=== PATIENT | male | born 1980 | race Caucasian/White ===

== ENCOUNTER 2017-12-25 20:28 | Emergency (ER) | payer BC ==
[2017-12-25] MEDS: METHOCARBAMOL 1,000 MG/10 ML VIAL (J2800) IV (21:16)
[2017-12-25] MEDS: ONDANSETRON 4MG/2ML VIAL (J2405) IV (21:16)
[2017-12-25] MEDS: KETOROLAC 30 MG/ML VIAL (J1885) IV (21:17)
[2017-12-25] MEDS: MORPHINE 4 MG/ML 1ML VIAL/SYRINGE (J2270) IV ×2 (21:55→22:38)
[2017-12-25] MEDS: OXYCODONE/APAP 5MG/325MG(BULK FOR ED) 1 TABLET PO (23:52)
== END 2017-12-26 00:06 | disposition home or self-care (01) ==
LOC: M ED 12-26 00:06
DX: M54.5 Low back pain (principal); Z79.899 Other long term (current) drug therapy; Z88.0 Allergy status to penicillin; F17.210 Nicotine dependence, cigarettes, uncomplicated
CPT/HCPCS: J2270

== ENCOUNTER → 2018-03-19 | Outpatient (CLI) | payer BC | LOC: M RAD 17:02 | DX: M54.2 Cervicalgia (principal); M54.5 Low back pain | CPT/HCPCS: 72052 ==

== ENCOUNTER → 2018-12-31 | Outpatient (CLI) | payer BC ==
[~2018-12-31] MED LIST: FLOM0.4C39 PO; NAPR-837 PO; OMEP40CA2 PO; PENT1TAB8 PO; PERC5TAB12 PO; SOMA350T PO; SUCR1TAB56 PO
--- NOTE | 2019-01-01 03:28 | REP ---
Clinical: Hypothyroidism . Comparison: 07/20/2006 . Findings: The mediastinum and cardiac silhouette are stable and within normal limits for portable technique. The lung sam are clear without acute consolidation, effusion, or pneumothorax. Skeletal structures are intact. Impression: No acute cardiopulmonary process appreciated. Electronically Signed by Dougie Humphrey MD 01/01/2019 03:20 A
--- NOTE | 2019-01-01 04:37 | REP ---
Clinical: Hypothyroidism. Technique: Real time baez scale ultrasound examination using linear high frequency transducer. Findings: The thyroid gland is heterogeneous, but normal in contour and size without focal cystic or nodular lesions identified. Right lobe measures 4.5 x 1.9 x 1.6 cm. Isthmus measures 4.0 mm in width. Left lobe measures 4.5 x 1.7 x 1.9 cm. Impression: Relatively normal thyroid ultrasound. No focal lesions or abnormalities identified. Electronically Signed by Dougie Humphrey MD 01/01/2019 04:29 A
== END ==
LOC: M RAD 08:31
PROVIDERS: ATTEND Nurse Practitioner Adult Health
DX: E03.9 Hypothyroidism, unspecified (principal); R05 Cough

== ENCOUNTER → 2020-11-10 | Outpatient (CLI) | payer BC ==
[~2020-11-10] MED LIST changes: -OMEP40CA2 PO; +OMEP40CA97 PO
--- NOTE | 2020-11-10 09:10 | REP ---
INDICATION: HYPOTHYROIDISM, UNSPECIFIED. COMPARISON: 12/31/2018. TECHNIQUE: Real-time sonographic evaluation of thyroid performed. FINDINGS: Both lobes of the thyroid are diffusely heterogeneous in echotexture. No discrete nodule is seen bilaterally. The right lobe measures 5.0 x 2.1 x 1.9 cm and the left lobe 4.8 x 1.9 x 1.7 cm. IMPRESSION: Diffuse heterogeneous echotexture of both lobes of the thyroid without a discrete nodule identified. No significant change compared to the prior study. <Electronically signed by Nazario Almazan > 11/10/20 [id number]
== END ==
LOC: M RAD 08:40
PROVIDERS: ATTEND Nurse Practitioner Family
DX: E03.9 Hypothyroidism, unspecified (principal)

== ENCOUNTER → 2021-04-21 | Outpatient (CLI) | payer BC ==
[~2021-04-21] MED LIST changes: +OMEP40CA4 PO; -OMEP40CA97 PO
== END ==
LOC: M WUC 10:08
PROVIDERS: ATTEND Nurse Practitioner Family
DX: E03.9 Hypothyroidism, unspecified (principal)

== ENCOUNTER → 2021-06-19 | Outpatient (CLI) | payer BC | LOC: M WUC 12:15 | PROVIDERS: ATTEND Nurse Practitioner Family | DX: E03.9 Hypothyroidism, unspecified (principal) ==

== ENCOUNTER → 2021-06-23 | Outpatient (CLI) | payer BC | LOC: M WUC 10:05 | PROVIDERS: ATTEND Nurse Practitioner Family | DX: E03.9 Hypothyroidism, unspecified (principal); K90.9 Intestinal malabsorption, unspecified ==

== ENCOUNTER → 2021-09-18 | Outpatient (CLI) | payer BC | LOC: M WUC 08:09 | PROVIDERS: ATTEND Nurse Practitioner Family | DX: E03.9 Hypothyroidism, unspecified (principal) ==

== ENCOUNTER → 2022-01-22 | Outpatient (REF) | payer BC ==
[2022-01-22 12:23] LABS: FREE T3 2.4 PG/ML (2.2-4.0); FREE T4 0.86 NG/DL (0.76-1.46); THYROID PEROXIDASE ANTIBODY > 1300.0 U/ML (<60.0)
== END ==
LOC: M LABWUC 09:44
PROVIDERS: ATTEND Internal Medicine
DX: E03.9 Hypothyroidism, unspecified (principal)

== ENCOUNTER → 2022-07-25 | Outpatient (REF) | payer BC ==
[2022-07-25 17:55] LABS: FREE T4 1.04 NG/DL (0.89-1.76)
[2022-07-25 18:01] LABS: THYROID STIMULATING HORMONE 59.625 uIU/ML (0.55-4.78)
== END ==
LOC: M LABDRWAD 16:48 → M LABWUC 16:48
PROVIDERS: ATTEND Internal Medicine
DX: E03.9 Hypothyroidism, unspecified (principal)

== ENCOUNTER → 2022-12-10 | Outpatient (CLI) | payer BC ==
[2022-12-10 12:23] LABS: FREE T4 1.36 NG/DL (0.89-1.76)
[2022-12-10 12:24] LABS: THYROID STIMULATING HORMONE 0.478 uIU/ML (0.55-4.78)
== END ==
LOC: M WUC 08:13
PROVIDERS: ATTEND Internal Medicine
DX: E03.9 Hypothyroidism, unspecified (principal)

== ENCOUNTER → 2023-08-20 | Outpatient (CLI) | payer BC ==
[2023-08-20 12:04] LABS: HEMOGLOBIN A1c 5.5 % (4.0-6.0)
== END ==
LOC: M WUC 08:28
PROVIDERS: ATTEND Surgery
DX: F18.10 Inhalant abuse, uncomplicated (principal); F17.210 Nicotine dependence, cigarettes, uncomplicated
CPT/HCPCS: 83036; G0480

== ENCOUNTER → 2023-08-20 | Outpatient (CLI) | payer BC ==
[2023-08-20 11:25] LABS: BASO % 0.4 % (0.0-1.0); EOS # 0.3 10^3/uL (0.0-0.5); EOS % 2.8 % (0.0-3.0); HEMATOCRIT 50.9 % (42.0-52.0); HEMOGLOBIN 16.9 g/dl (13.5-17.5); LYMPH # 3.3 10^3/uL (1.5-5.0); LYMPH % 32.4 % (24.0-44.0); MEAN CORPUSCULAR HEMOGLOBIN 31.1 pg (27.0-33.0); MEAN CORPUSCULAR HGB CONC 33.2 g/dl (32.0-36.5); MEAN CORPUSCULAR VOLUME 93.6 fl (80.0-96.0); MONO # 0.6 10^3/uL (0.0-0.8); MONO % 6.2 % (2.0-8.0); NEUTROPHILS # 5.8 10^3/uL (1.5-8.5); NEUTROPHILS % 57.6 % (36.0-66.0); PLATELET COUNT, AUTOMATED 297 10^3/uL (150-450); RED BLOOD COUNT 5.44 10^6/uL (4.30-6.10); WHITE BLOOD COUNT 10.1 10^3/uL (4.0-10.0)
[2023-08-20 11:42] LABS: ERYTHROCYTE SEDIMENTATION RATE 51 mm/hr (0-15)
[2023-08-20 11:57] LABS: ALBUMIN 3.1 G/DL (3.2-5.2); ALKALINE PHOSPHATASE 66 U/L (46-116); ALT/SGPT 32 U/L (7.0-40); AST/SGOT 15 U/L (<34); BILIRUBIN,TOTAL 0.3 MG/DL (0.3-1.2); BLOOD UREA NITROGEN 18 MG/DL (9-23); CALCIUM LEVEL 8.6 MG/DL (8.5-10.1); CARBON DIOXIDE LEVEL 28 MMOL/L (20-31); CHLORIDE LEVEL 107 MMOL/L (98-107); CREATININE FOR GFR 0.82 MG/DL (0.70-1.30); GLOMERULAR FILTRATION RATE > 60.0 (>60); GLUCOSE, FASTING 68 MG/DL (60-100); POTASSIUM SERUM 4.5 MMOL/L (3.5-5.1); SODIUM LEVEL 138 MMOL/L (136-145); TOTAL PROTEIN 6.6 G/DL (5.7-8.2)
[2023-08-20 11:58] LABS: RHEUMATOID FACTOR QUANT < 3.5 IU/ML (<14)
[2023-08-20 11:59] LABS: FOLATE 8.94 NG/ML (>5.4); TOTAL 25(OH) VITAMIN D 19.1 NG/ML (20.0-100.0); VITAMIN B12 LEVEL 283 PG/ML (211-911)
[2023-08-21 12:07] LABS: ANTINUCLEAR ANTIBODIES DIRECT Negative (Negative)
== END ==
LOC: M WUC 08:24
PROVIDERS: ATTEND Psychiatry & Neurology Neurology
DX: R51.9 Headache, unspecified (principal)

== ENCOUNTER → 2023-08-20 | Outpatient (CLI) | payer BC ==
[2023-08-20 11:58] LABS: FREE T4 1.18 NG/DL (0.89-1.76); THYROID STIMULATING HORMONE 0.348 uIU/ML (0.55-4.78)
[2023-08-20 12:00] LABS: FREE T3 3.8 PG/ML (2.3-4.2)
== END ==
LOC: M WUC 08:26
PROVIDERS: ATTEND Internal Medicine
DX: E03.9 Hypothyroidism, unspecified (principal)

== ENCOUNTER → 2023-09-26 | Outpatient (REF) | payer BC ==
[2023-09-26 17:10] LABS: THYROID STIMULATING HORMONE 3.09 uIU/ML (0.55-4.78)
[2023-09-26 17:11] LABS: FREE T4 1.6 NG/DL (0.89-1.76)
== END ==
LOC: M LABWUC 16:20
PROVIDERS: ATTEND Registered Nurse
DX: E03.9 Hypothyroidism, unspecified (principal)

== ENCOUNTER 2024-04-06 13:21 | Day surgery (SDC) | payer BC ==
[~2024-04-06] VITALS: Ht 188 cm; Wt 146.8 kg
[~2024-04-06 13:21] MED LIST changes: +FENO160T10 PO; +IBUP80TA PO; +LIOT5TAB6 PO; +NEXI40CA PO; +ROSU40TA63 PO; +SUMA100T2 PO; +SYNT300T2 PO; +TOPI100T9 PO
[2024-04-06] MEDS ORDERED: LR 1,000 ML IV SCH ×2 (13:35→17:05)
[2024-04-06] MEDS ORDERED: fentaNYL 100 MCG/2 ML INJECTION As Ordered ONE (14:15)
[2024-04-06] MEDS ORDERED: MIDAZOLAM INJ 2MG/2ML VIAL As Ordered ONE (14:15)
[2024-04-06] MEDS ORDERED: ROCURONIUM BROMIDE 50MG/5ML VIAL As Ordered ONE (14:15)
[2024-04-06] MEDS ORDERED: ONDANSETRON 4MG 2ML VIAL As Ordered ONE (14:15)
[2024-04-06] MEDS ORDERED: LIDOCAINE 2% 100MG/5ML SDV (FOR ANES.) As Ordered ONE (14:15)
[2024-04-06] MEDS ORDERED: SUGAMMADEX SODIUM 500 MG/5 ML VIAL (BRIDION) As Ordered ONE (14:15)
[2024-04-06] MEDS ORDERED: propofoL 200 MG/20 ML VIAL As Ordered ONE (14:15)
[2024-04-06] MEDS ORDERED: KETOROLAC 60MG 2ML VIAL As Ordered ONE (14:18)
[2024-04-06] MEDS ORDERED: ceFAZolin SOD 3 GM in IV 1 EA IV ONE (14:35)
[2024-04-06] MEDS: INDOCYANINE GREEN 25MG VIAL (IC-GREEN) IV ONE (14:45)
[2024-04-06] MEDS: ceFAZolin SOD 1 GM in D5W MINI-BAG PLUS 50 ML IV ONE (14:45)
[2024-04-06] MEDS: ceFAZolin SOD 2 GM in IV 1 EA IV ONE (14:47)
[2024-04-06] MEDS: HEPARIN SOD (PORCINE) 5000UNITS/ML 1ML VIAL/SYRINGE SQ ONE (16:13)
[2024-04-06] MEDS ORDERED: LABETALOL 100MG/20ML VIAL As Ordered ONE (16:26)
[2024-04-06] MEDS ORDERED: dexmedeTOMIDine (4MCG/ML)200MCG/50ML BTL (PRECEDEX) As Ordered ONE (16:54)
[2024-04-06] MEDS ORDERED: HYDR-3713 PO (17:17)
[2024-04-06] MEDS: fentaNYL 100 MCG/2 ML INJECTION IV PRN (17:42)
[2024-04-06] MEDS: ONDANSETRON 4MG 2ML VIAL IV PRN (17:44)
[2024-04-06] MEDS: HYDROMORPHONE HCL 0.5 MG/ 0.5 ML SYRINGE IV PRN (17:47)
[2024-04-06] MEDS: oxyCODONE 5MG TAB PO PRN (17:48)
[2024-04-06 19:17] VITALS: BP 119/72; TEMP 97.3; O2SAT 96
== END 2024-04-06 19:18 | disposition home or self-care (01) ==
LOC: M SDC 13:21
PROVIDERS: ATTEND Surgery
DX: K80.10 Calculus of gallbladder with chronic cholecystitis without obstruction (principal); I10 Essential (primary) hypertension; E03.9 Hypothyroidism, unspecified; E78.00 Pure hypercholesterolemia, unspecified; K21.9 Gastro-esophageal reflux disease without esophagitis; F17.210 Nicotine dependence, cigarettes, uncomplicated; Z79.899 Other long term (current) drug therapy; Z79.890 Hormone replacement therapy; Z88.0 Allergy status to penicillin
CPT/HCPCS: 47562; 88304; J0665; J0690; J1100; J1170; J1885; J1920; J2250; J2405; J3010; Q9968; S2900

== ENCOUNTER → 2024-04-25 | Outpatient (CLI) | payer BC ==
[~2024-04-25] MED LIST changes: +HYDR-3713 PO; -ROSU40TA63 PO; +ROSU40TA81 PO
== END ==
LOC: M SLEEP 20:00
PROVIDERS: ATTEND Physician Assistant
DX: R40.0 Somnolence (principal)

== ENCOUNTER → 2024-06-05 | Outpatient (CLI) | payer BC | LOC: M SLEEP 20:00 | PROVIDERS: ATTEND Physician Assistant | DX: G47.33 Obstructive sleep apnea (adult) (pediatric) (principal) ==

== ENCOUNTER → 2024-10-30 | Outpatient (CLI) | payer BC ==
[2024-10-30 16:15] LABS: HEMATOCRIT 48.9 % (42.0-52.0); HEMOGLOBIN 16.1 g/dl (13.5-17.5); MEAN CORPUSCULAR HEMOGLOBIN 30.4 pg (27.0-33.0); MEAN CORPUSCULAR HGB CONC 32.9 g/dl (32.0-36.5); MEAN CORPUSCULAR VOLUME 92.4 fl (80.0-96.0); PLATELET COUNT, AUTOMATED 254 10^3/uL (150-450); RED BLOOD COUNT 5.29 10^6/uL (4.30-6.10); WHITE BLOOD COUNT 7.8 10^3/uL (4.0-10.0)
[2024-10-30 16:45] LABS: ALBUMIN 3.2 G/DL (3.2-5.2); ALKALINE PHOSPHATASE 69 U/L (40-129); ALT/SGPT 41 U/L (7.0-40); AST/SGOT 20 U/L (<34); BILIRUBIN,TOTAL 0.5 MG/DL (0.3-1.2); BLOOD UREA NITROGEN 10 MG/DL (9-23); CALCIUM LEVEL 9.1 MG/DL (8.5-10.1); CARBON DIOXIDE LEVEL 28 MMOL/L (20-31); CHLORIDE LEVEL 105 MMOL/L (98-107); CHOLESTEROL LEVEL 124 MG/DL (<200); CHOLESTEROL RISK RATIO 4.47 (<5); GLOMERULAR FILTRATION RATE > 60.0 (>60); GLUCOSE, FASTING 78 MG/DL (60-100); HDL CHOLESTEROL 27.7 MG/DL (>40); LDL CHOLESTEROL 75.5 MG/DL (<100); NON-HDL-C 96.3 MG/DL; POTASSIUM SERUM 4.3 MMOL/L (3.5-5.1); SODIUM LEVEL 142 MMOL/L (136-145); TOTAL PROTEIN 6.7 G/DL (5.7-8.2); TRIGLYCERIDES LEVEL 104 MG/DL (<150)
[2024-10-30 16:47] LABS: FREE T4 2.23 NG/DL (0.89-1.76); THYROXINE (T4) 16.8 UG/DL (4.5-10.9)
[2024-10-30 16:48] LABS: THYROID STIMULATING HORMONE < 0.010 uIU/ML (0.55-4.78)
[2024-10-30 16:50] LABS: FREE T3 5.2 PG/ML (2.3-4.2)
== END ==
LOC: M WUC 09:14
PROVIDERS: ATTEND Registered Nurse
DX: Z00.00 Encounter for general adult medical examination without abnormal findings (principal); E03.9 Hypothyroidism, unspecified; E78.00 Pure hypercholesterolemia, unspecified; R19.7 Diarrhea, unspecified; R68.82 Decreased libido